=== PATIENT | female | born 1990 | race Caucasian/White ===

== ENCOUNTER → 2020-08-05 08:46 | Outpatient (CLI) | payer BC, SELFPAY ==
[2020-08-05 10:47] LABS: Vitamin D,25 Hydroxy 19.9 ng/mL
[2020-08-05 10:58] LABS: Anion Gap 3 (5-15); BUN 14 mg/dL (7-18); BUN/Creat Ratio 18.9 RATIO (10-20); Calcium,Total 9.1 mg/dL (8.5-10.1); Chloride 108 mmol/L (98-107); Cholesterol 171 mg/dL (200); Creatinine, Serum 0.74 mg/dL (0.55-1.02); EST Glomerular Filtration Rate 99 mL/min (>60); Est Glom Filt Rate - Afr Amer 119 mL/min (>60); Glucose 92 mg/dL (74-106); High Density Lipoprotein 71 mg/dL; Sodium Level 138 mmol/L (136-145); Thyroid Stim Hormone (TSH) 1.69 uIU/mL (0.358-3.74); Triglycerides 65 mg/dL; Very Low Density Lipoprotein 13 mg/dL (5-40)
== END ==
PROVIDERS: PCP Family Medicine; Referring Provider Family Medicine; Visit Provider Family Medicine
DX: Z00.00 Encounter for general adult medical examination without abnormal findings (principal)
CPT/HCPCS: 36415; 80048; 80061; 82306; 84443

== ENCOUNTER → 2020-09-24 10:05 | Outpatient (CLI) | payer BC, SELFPAY ==
--- NOTE | 2020-09-24 10:27 | CT_ITS ---
STUDY: CT ABDOMEN AND PELVIS WITH CONTRAST REASON FOR EXAM: Female, 30 years old. ABD PAIN RADIATION DOSAGE (If Supplied By Facility): CTDIvol = ( 15.50 ) mGy, DLP = ( 893.17 ) mGycm TECHNIQUE: Transaxial images were obtained from the dome of the diaphragm to the symphysis pubis with oral contrast. 100mL Isovue-300 was administered. Sagittal and coronal images were reconstructed. Individualized dose optimization techniques were used for this CT. COMPARISON: None. FINDINGS: The visualized lung bases are unremarkable. The visualized portions of the heart are within normal limits. There is hepatomegaly with diffuse hepatic enlargement. Normal gallbladder and extrahepatic biliary system. Normal spleen. Normal pancreas. Normal bilateral adrenal glands. Normal right kidney. Normal left kidney. Normal visualized stomach. Normal small intestine. Normal colon. The appendix is visualized and appears normal. Normal abdominal aorta. Normal inferior vena cava. Normal retroperitoneum. Normal urinary bladder. Normal visualized uterus. There are adnexal follicles. There is no free fluid in the abdomen or pelvis. Normal abdominal wall. Normal osseous structures. CT/Abdomen/Pelvis WITH Contrast IMPRESSION: Hepatomegaly. No mass or obstruction. Electronically Signed: Abner Lackey MD at 13:18 EDT , Service support ,
[2020-09-24 10:29] LABS: Absolute Lymphocyte Count 1.86 X10^3/uL (0.83-4.51); Absolute Neutrophil Count 3.3 X10^3/uL (2.0-7.7); Basophil# 0.05 X10^3/uL; Basophil% 0.9 % (0-1); Eosinophils% 1.7 % (0-5); Hematocrit 44.4 % (37-47); Hemoglobin 14.4 g/dL (12.0-15.0); Lymphocyte # 1.86 X10^3/ul (4.0); Lymphocyte % 31.8 % (19-41); Mean Corp Hgb Conc 32.4 g/dL (32-36); Mean Corpuscular Hgb 29.8 pg (27.0-32.0); Mean Corpuscular Volume 91.7 fL (81-99); Mean Platelet Vol. 9.8 fl (6.2-12.0); Monocyte# 0.47 X10^3/uL; NRBC Flagged by Analyzer 0 % (0-5); Neutrophil # 3.33 X10^3/uL (2.7-7.7); Neutrophil % 57.1 % (47-70); Platelet Count 270 K/mm3 (150-450); RBC Distribution Width CV 12.3 % (11.6-14.6); RBC Distribution Width SD 41.4 fl (35.1-43.9); Red Blood Count 4.84 M/mm3 (4.2-5.4); White Blood Count 5.8 K/mm3 (4.4-11.0)
[2020-09-24 10:45] LABS: ALB/GLOB Ratio 1.2 RATIO (0.9-2.4); AST(SGOT) 12 U/L (15-37); Alanine Aminotransfer ALT/SGPT 18 U/L (13-56); Albumin, Serum 4.2 g/dL (3.2-5.0); Alkaline Phosphatase 61 U/L (45-117); Anion Gap 3 (5-15); BUN 11 mg/dL (7-18); BUN/Creat Ratio 15.8 RATIO (10-20); Calcium,Total 9.3 mg/dL (8.5-10.1); Chloride 105 mmol/L (98-107); EST Glomerular Filtration Rate 105 mL/min (>60); Est Glom Filt Rate - Afr Amer 127 mL/min (>60); Globulin 3.6 g/dL (2.2-4.2); Glucose 93 mg/dL (74-106); Lipase 90 U/L (73-393); Potassium 3.8 mmol/L (3.5-5.1); Protein, Total 7.8 g/dL (6.4-8.2); Sodium Level 138 mmol/L (136-145)
== END ==
PROVIDERS: PCP Family Medicine; Referring Provider Family Medicine; Visit Provider Family Medicine
DX: R10.9 Unspecified abdominal pain (principal)
CPT/HCPCS: 36415; 74177; 80053; 83690; 85025; Q9967

== ENCOUNTER → 2022-09-01 | Outpatient (CLI) | payer OTHER, SELFPAY ==
[2022-09-01 09:58] LABS: Absolute Lymphocyte Count 1.77 X10^3/uL (0.83-4.51); Absolute Neutrophil Count 2.4 X10^3/uL (2.0-7.7); Basophil# 0.04 X10^3/uL; Basophil% 0.9 % (0-1); Eosinophil# 0.08 X10^3/uL; Eosinophils% 1.7 % (0-5); Hematocrit 39.9 % (37-47); Hemoglobin 13.1 g/dL (12.0-15.0); Lymphocyte # 1.77 X10^3/ul (0.83-4.51); Lymphocyte % 38.1 % (19-41); Mean Corp Hgb Conc 32.8 g/dL (32-36); Mean Corpuscular Hgb 29.8 pg (27.0-32.0); Mean Corpuscular Volume 90.9 fL (81-99); Mean Platelet Vol. 10.3 fl (6.2-12.0); Monocyte# 0.37 X10^3/uL; NRBC Flagged by Analyzer 0 % (0-5); Neutrophil # 2.37 X10^3/uL (2.7-7.7); Neutrophil % 51.1 % (47-70); Platelet Count 269 K/mm3 (150-450); RBC Distribution Width CV 12.3 % (11.6-14.6); RBC Distribution Width SD 40.6 fl (35.1-43.9); Red Blood Count 4.39 M/mm3 (4.2-5.4); White Blood Count 4.6 K/mm3 (4.4-11.0)
[2022-09-01 10:14] LABS: ALB/GLOB Ratio 1.1 RATIO (0.9-2.4); AST(SGOT) 19 U/L (15-37); Alanine Aminotransfer ALT/SGPT 20 U/L (13-56); Albumin, Serum 3.8 g/dL (3.2-5.0); Alkaline Phosphatase 49 U/L (45-117); Anion Gap 5 (5-15); BUN 10 mg/dL (7-18); BUN/Creat Ratio 16.2 RATIO (10-20); Calcium,Total 9.1 mg/dL (8.5-10.1); Chloride 109 mmol/L (98-107); Cholesterol 167 mg/dL (200); Creatinine, Serum 0.62 mg/dL (0.55-1.02); EST Glomerular Filtration Rate 120 mL/min (>60); Est Glom Filt Rate - Afr Amer 145 mL/min (>60); Globulin 3.5 g/dL (2.2-4.2); Glucose 99 mg/dL (74-106); High Density Lipoprotein 61 mg/dL; Potassium 4.1 mmol/L (3.5-5.1); Protein, Total 7.3 g/dL (6.4-8.2); Sodium Level 141 mmol/L (136-145); Triglycerides 99 mg/dL; Very Low Density Lipoprotein 20 mg/dL (5-40)
[2022-09-01 10:15] LABS: Vitamin D,25 Hydroxy 28.6 ng/mL
== END | disposition home or self-care (01) ==
LOC: MTLAB 09:11
PROVIDERS: PCP Family Medicine; Referring Provider Family Medicine; Visit Provider Family Medicine
DX: Z00.00 Encounter for general adult medical examination without abnormal findings (principal); T14.8XXA Other injury of unspecified body region, initial encounter
CPT/HCPCS: 36415; 80053; 80061; 82306; 85025

== ENCOUNTER → 2023-01-03 | Outpatient (CLI) | payer OTHER, SELFPAY ==
[2023-01-03 15:12] LABS: Absolute Lymphocyte Count 1.41 X10^3/uL (0.83-4.51); Absolute Neutrophil Count 2.6 X10^3/uL (2.0-7.7); Basophil# 0.05 X10^3/uL; Basophil% 1.1 % (0-1); Eosinophil# 0.04 X10^3/uL; Eosinophils% 0.9 % (0-5); Hematocrit 40.9 % (37-47); Lymphocyte # 1.41 X10^3/ul (0.83-4.51); Lymphocyte % 31.8 % (19-41); Mean Corp Hgb Conc 31.8 g/dL (32-36); Mean Corpuscular Hgb 29.1 pg (27.0-32.0); Mean Corpuscular Volume 91.5 fL (81-99); Mean Platelet Vol. 10.6 fl (6.2-12.0); Monocyte# 0.32 X10^3/uL; Monocyte% 7.2 % (0-10); NRBC Flagged by Analyzer 0 % (0-5); Neutrophil # 2.61 X10^3/uL (2.7-7.7); Neutrophil % 58.8 % (47-70); Platelet Count 284 K/mm3 (150-450); RBC Distribution Width CV 12.5 % (11.6-14.6); RBC Distribution Width SD 41.7 fl (35.1-43.9); Red Blood Count 4.47 M/mm3 (4.2-5.4); White Blood Count 4.4 K/mm3 (4.4-11.0)
[2023-01-03 15:41] LABS: Erythrocyte Sedimentation Rate 6 mm/hr (0-30)
[2023-01-03 15:56] LABS: CRP < 2.90 mg/L (0.0-3.0); Ferritin 56 ng/mL (8-252); Free T3 2.6 pg/mL (2.18-3.98); Rheumatoid Factor < 10.0 IU/mL (<15); T4 Free Direct 0.86 ng/dL (0.76-1.46); Thyroid Stim Hormone (TSH) 1.69 uIU/mL (0.358-3.74)
[2023-01-03 17:49] LABS: Vitamin B12 422 pg/mL (211-911)
[2023-01-05 15:08] LABS: ANTINUCLEAR ANTIBODIES DIRECT Negative (Negative)
[2023-01-05 16:09] LABS: Anti-Thyroglobulin AB < 1.0 IU/mL (0.0-0.9); Thyroglobulin, Serum Qt. 11.7 ng/mL (1.5-38.5); Thyroid Peroxidase AB < 9 IU/mL (0-34)
== END | disposition home or self-care (01) ==
LOC: MFPLAB 11:44
PROVIDERS: PCP Family Medicine; Visit Provider Family Medicine
DX: R53.83 Other fatigue (principal); M79.10 Myalgia, unspecified site
CPT/HCPCS: 36415; 82607; 82728; 84432; 84439; 84443; 84481; 85025; 85652; 86038; 86140; 86225; 86235; 86376; 86431; 86800

== ENCOUNTER → 2023-03-06 | Outpatient (CLI) | payer OTHER, SELFPAY ==
[2023-03-10 12:08] LABS: HPV APTIMA, High Risk Negative (Negative)
== END | disposition home or self-care (01) ==
LOC: LABSPEC 15:26
PROVIDERS: PCP Family Medicine; Referring Provider Nurse Practitioner Women's Health; Visit Provider Nurse Practitioner Women's Health
DX: Z12.4 Encounter for screening for malignant neoplasm of cervix (principal)
CPT/HCPCS: 87624; 88175; G0145

== ENCOUNTER → 2024-09-19 | Outpatient (CLI) | payer OTHER, SELFPAY ==
[2024-09-19 13:43] LABS: ALB/GLOB Ratio 1.5 RATIO (0.9-2.4); AST(SGOT) 22 U/L (<=31); Alanine Aminotransfer ALT/SGPT 17 U/L (<=34); Albumin, Serum 4.3 g/dL (3.5-5.0); Alkaline Phosphatase 57 U/L (35-104); Anion Gap 10 (5-15); BUN 11 mg/dL (4-19); BUN/Creat Ratio 14.1 RATIO (10-20); Calcium,Total 9.4 mg/dL (7.6-11.0); Carbon Dioxide 22.3 mmol/L (21.0-32.0); Chloride 106 mmol/L (98-108); Cholesterol 178 mg/dL (<=200); Creatinine, Serum 0.75 mg/dL (0.70-1.20); EST Glomerular Filtration Rate 108 (>60); Globulin 2.9 g/dL (2.2-4.2); Glucose 93 mg/dL (70-99); High Density Lipoprotein 83 mg/dL; Low Density Lipoprotein Calc. 89 mg/dL; Potassium 4.2 mmol/L (3.3-5.1); Protein, Total 7.2 g/dL (5.9-8.4); Sodium Level 139 mmol/L (133-145); Total Bilirubin 0.46 mg/dL (0.00-1.30); Triglycerides 33 mg/dL; Very Low Density Lipoprotein 7 mg/dL (5-40); cholesterol:hdl ratio screen 2.15
[2024-09-19 13:47] LABS: Vitamin D,25 Hydroxy 28.4 ng/mL (30-100)
[2024-09-19 14:24] LABS: Magnesium 2.1 mg/dL (1.5-2.2)
== END | disposition home or self-care (01) ==
LOC: MFPLAB 10:53
PROVIDERS: PCP Family Medicine
DX: Z00.00 Encounter for general adult medical examination without abnormal findings (principal); Z13.29 Encounter for screening for other suspected endocrine disorder; Z13.220 Encounter for screening for lipoid disorders
CPT/HCPCS: 36415; 80053; 80061; 82306; 83735; 84443